=== PATIENT | male | born 1995 | race Two or more races ===

== ENCOUNTER 2021-03-16 13:16 | Emergency (ER) | payer MEDICAID, OTHER ==
[~2021-03-16] VITALS: Ht 175.3 cm; Wt 61.2 kg
[2021-03-16 13:46] LABS: Basophils # (auto) 0.1 10 ^3/uL (0-0.2); Basophils % (auto) 0.6 % (0.0-2.0); Eosinophils # (auto) 0.1 10 ^3/uL (0-0.8); Eosinophils % (auto) 1.3 % (0.0-7.0); Hematocrit 42.5 % (41.0-53.0); Hemoglobin 14.2 g/dL (13.5-17.5); Lymphocytes # (auto) 1.6 10 ^3/uL (0.4-5.4); Mean Corpuscular Hemoglobin 29.9 pg (28.0-32.0); Mean Corpuscular Hgb Conc. 33.4 g/dL (32.0-36.0); Mean Corpuscular Volume 89.5 fL (80.0-100.0); Monocytes # (auto) 0.7 10 ^3/uL (0-1.3); Monocytes % (auto) 7.4 % (0.0-12.0); Neutrophils % (auto) 73.7 % (37.0-80.0); Nucleated Red Blood Cells % 0.1 %; Red Blood Cells 4.75 10^6/uL (4.5-5.90); Red Cell Distribution Width 12.9 % (11.8-14.3); White Blood Cell 9.4 10^3/uL (4.4-10.8)
[2021-03-16 14:00] LABS: Albumin 4.3 g/dL (3.4-5.0); Calcium 9.1 mg/dL (8.5-10.1); Potassium 3.8 mmol/L (3.5-5.1)
[2021-03-16] MEDS ORDERED: SODIUM CHLORIDE 0.9% 1,000 ML IV ONE (14:00)
[2021-03-16 14:03] LABS: BUN/Creatinine Ratio 10.9; Bilirubin, Total 0.4 mg/dL (0.2-1.0); Total Protein 7.5 g/dL (6.4-8.2)
[2021-03-16 14:30] VITALS: BP 110/54
== END 2021-03-16 15:14 | disposition home or self-care (01) ==
LOC: ER 13:18
DX: R10.84 Generalized abdominal pain (principal); R19.7 Diarrhea, unspecified
CPT/HCPCS: 36415; 74176; 80053; 83690; 85025; 96360; 99284; J7030